=== PATIENT | female | born 1950 | race Caucasian/White ===

== ENCOUNTER 2019-11-21 10:52 | Day surgery (SDC) | payer MEDICARE ==
[~2019-11-21] VITALS: Ht 165.1 cm; Wt 109.8 kg
[~2019-11-21 10:52] MED LIST: ADVIL ALLERGY1 EACH PO; ALL DAY ALLERGY10 M3 PO; CALCIUM/MAG/ZINC; CYCLOBENZAPRINE5 MG PO; LEVOXYL150 MCG PO; NAPROXEN SODIU220 MG PO; OMEPRAZOLE20 MG PO; RED YEAST RICE600 M1 PO
[2019-11-21] MEDS ORDERED: CALCIUM MAGNES1 EAC2 PO (11:26)
--- NOTE | 2019-11-21 13:10 | NUR ---
11/21/19 1310 [facility],[place] 1302-PT ARRIVES TO PACU ON RA. SATS >90%. PT RESPONSIVE TO VERBAL STIMULUS AND DENIES PAIN/NAUSEA. BEDSIDE GLUCOSE 113. PT BACK TO SLEEP AND SATS DROP TO 89%. 2 L O2 VIA NC STARTED.
--- NOTE | 2019-11-25 13:21 | PATH ---
[facility] [address] [facility] [place], [place] [address] Signed SPECIMEN(S): C COMP FLOW CYTOMETRY, BM EDTA SPECIMEN(S): A BONE MARROW - CORE SPECIMEN(S): B BONE MARROW - ASPIRATION CLINICAL HISTORY: D61.818 (other pancytopenia) DIAGNOSIS SUMMARY: A. Peripheral blood - Pancytopenia. B. Bone marrow, left side, aspirate smear, aspirate cell block, and trephine biopsy: - Normocellular marrow with erythrocytic hyperplasia. - Negative for definitive morphologic features of myelodysplasia. - Negative for lymphoproliferative and plasma cell neoplasm. - Stainable iron store is not detected. - See Diagnostic Comment. DIAGNOSTIC COMMENT: The bone marrow examination is significant for mild erythrocytic hyperplasia. Overtly dysplastic features are not seen in the erythroid, myeloid, or megakaryocytic series to account for the patient's pancytopenia. No marrow infiltrative disorder, including granulomatous inflammation, is seen. While low-grade myelodysplastic syndrome is not excluded despite the absence of convincing morphologic evidence, clinical correlation is necessary to exclude reactive causes including chronic illness, medication effect, and immunologic disorders. Karyotype analysis and MDS panel FISH analysis are being performed and the results will be reported by addendum. TTP:smn:C2NR PERIPHERAL BLOOD: HEMOGRAM (11/21/2019): WBC 2.6 K/uL, RBC 4.51 M/uL, HGB 10.6 g/dL, HCT 32.9%, MCV 73.0 fL, RDW 16.2%, PLT 93 K/uL. DIFFERENTIAL (AUTOMATED): 58.2% neutrophils, 31.2% lymphocytes, 7.4% monocytes, 1.9% eosinophils, and 1.3% basophils. Absolute neutrophil count is 1.5 K/uL. The red cells are normal in number and are associated with mildly decreased hemoglobin and hematocrit levels. The red cells are slightly hypochromic and microcytic. Anisocytosis and poikilocytosis are increased with some scattered polychromatophilic macrocytes. No PATIENT NAME: RADHA CASTILLO PATHOLOGY DATE OF : 54 REPORT #: [id number] PHYSICIAN: STUART PATHOLOGY PCP: JARON GUNN MD REPORT IS CONFIDENTIAL AND NOT TO BE RELEASED WITHOUT AUTHORIZATION [facility] [address] [place], [place] [address] Signed significant number of spherocytes or schistocytes is seen. Red blood cell rouleaux are absent. Leukocytes are decreased in number and consistent of mature neutrophils with normal morphology. There is mild absolute neutropenia. Overtly dysplastic changes are not seen. Circulating blasts and immature granulocytes are not detected. There is no monocytosis, basophilia, or eosinophilia. Lymphocytes show normal morphology. No significant number of large granular lymphocytes is seen. Platelets are mildly decreased in number and show normal morphology. BONE MARROW: BONE MARROW ASPIRATE SMEARS: The bone marrow aspirate smears contain abundant cellular marrow particles. Erythroid precursors are increased. Both myeloid and erythroid precursors show complete and material flow analyst maturation without overtly dysplastic change. Blasts are not increased. An atypical lymphoid cell population is not detected. A few scattered plasma cells are present and they show normal morphology. Megakaryocytes are normal in number and show normal morphology. A 200-cell differential count yields: 6% myelocytes, 15% metamyelocytes, 17% neutrophils, 8% lymphocytes, 2% plasma cells, and 52% erythroid precursors. BONE MARROW CLOT (ASPIRATE CELL BLOCK) AND TREPHINE BIOPSY: A 2.1 cm decalcified trephine biopsy is available for review, showing a normocellular marrow for age (60% cellular). Granulopoietic and erythroid maturations are present with an M:E ratio of 1:2. No increase in immature cells is noted. A single lymphoid aggregate with a small germinal center is present, morphologically benign. No increase in plasma cells is appreciated. Megakaryocytes are normal in number and show normal morphology with even distribution. Trabecular bone is normal. The clot section contains several cellular marrow particles with similar findings. SPECIAL STAINS: - Iron (aspirate smears and clot section): Stainable iron store is not detected. Negative for ringed sideroblasts. - Reticulin (block A1): Mild patchy reticulin fibrosis, grade 0-1 of 3. Appropriate positive controls are reviewed. IMMUNOHISTOCHEMISTRY, BLOCK A1: - CD34: Rare scattered cells are positive (less than 1% blasts). - CD117: No increase in blasts. - CD71: Erythroid precursors are positive, increased. PATIENT NAME: RADHA CASTILLO PATHOLOGY DATE OF : 54 REPORT #: [id number] PHYSICIAN: STUART PATHOLOGY PCP: JARON GUNN MD REPORT IS CONFIDENTIAL AND NOT TO BE RELEASED WITHOUT AUTHORIZATION [facility] [address] [facility] [place], [place] [address] Signed - Myeloperoxidase: Granulocytic precursors are positive, normal amount. - Factor VIII: Megakaryocytes are positive, normal amount, with even distribution. TTP:smn FLOW CYTOMETRY: Bone marrow aspirate, flow cytometry: - No increase in blasts (1% myeloblasts). - Normal myeloid maturation. - No atypical lymphoid cell population. - See Comment. COMMENT: While no hematopoietic abnormality is detected in this study, correlation with clinical, morphologic, and genetic findings is recommended for full interpretation and to assess for disease processes not fully examined by flow cytometry analysis, including myelodysplastic syndrome. FLOW CYTOMETRY ANALYSIS: FLOW DIFFERENTIAL (% Total CD45 vs. SSC gating): Myeloid 68%; Lymphoid 10%; Monocyte 2%; Dim CD45/Blast: 1%. Cell Count: 3.2 x 10*3/uL. POPULATION ANALYSIS: BLASTS: Analysis of the dim CD45 gate demonstrates 1% myeloblasts and 6% hematogones. LYMPHOID CELLS: The lymphocyte gate comprises 10% of total events and includes 71% T-cells with a CD4:CD8 ratio of 2.3:1 and normal camacho T-cell antigen expression. 21% of lymphocytes are polyclonal B-cells with a kappa:lambda ratio of 2.0:1. The remainders are NK-cells. MYELOID CELLS: The myeloid population comprises 68% of the total events. No aberrant immunophenotypic expression is detected. MONOCYTES: The monocyte population comprises 2% of the total events. Monocytes are not increased. No aberrant immunophenotypic expression is detected. PLASMA CELLS: 0.6% plasma cells are detected in the screening gate neg-dimCD45/CD38. Plasma cells are CD45 dim and positive for CD19. ANTIBODIES USED: KAPPA, LAMBDA, CD20, CD10, CD19, CD23, CD38, FMC7, CD16, CD56, CD8, CD5, CD2, CD4, CD7, CD3, CD14, CD33, CD13, HLADR, CD34, CD117, CD15, CD45: TOTAL ANTIBODIES USED: 24. TCS FINAL DIAGNOSIS PERFORMED BY: Sonia Herrera MD, Pathologist Nov 24 2019 11:12AM PATIENT NAME: RADHA CASTILLO PATHOLOGY DATE OF : 54 REPORT #: [id number] PHYSICIAN: STUART PATHOLOGY PCP: JARON GUNN MD REPORT IS CONFIDENTIAL AND NOT TO BE RELEASED WITHOUT AUTHORIZATION [facility] [address] [place], [place] [address] Signed CYTOGENETICS: Pending, to be reported by addendum. FISH ANALYSIS: Pending, to be reported by addendum. GROSS DESCRIPTION: Received in formalin in two parts. A. The specimen, received in formalin, labeled "Eusebio, bone core," consists of two cosme bone core fragments, 0.9 and 1.8 cm in greatest dimension. Entirely submitted in (A1) following decalcification in Immunocal for 1.5 hours. B. The specimen, received in formalin, labeled "Eusebio, clot," consists of a 1.9 x 1.1 x 0.8 cm aggregate of blood clot. Entirely submitted in (B1). tn:ALONSO:erica ADDITIONAL NOTES: Immunohistochemical and/or in situ hybridization studies were performed on this case with the appropriate positive controls that react as expected. This test was developed and its performance characteristics determined by [facility]. It has not been cleared or approved by the U.S. Food and Drug Administration. The FDA has determined that such clearance or approval is not necessary. This test is used for clinical purposes. It should not be regarded as investigational or for research. [facility] is certified under the Clinical Laboratory Improvement Amendments of 1988 (CLIA) as qualified to perform high complexity clinical laboratory testing. In this case, certain antibodies were performed by both immunohistochemistry and flow cytometry analysis because flow cytometry analysis did not fully explain all the light microscopic findings. Immunohistochemistry aided in the analysis. Both methods are deemed medically necessary in this case. This test was developed and its performance characteristics determined by [facility]. It has not been cleared or approved by the US Food and Drug Administration. The FDA does not require this test to go through premarket FDA review. This test is used for clinical purposes. It should not be regarded as investigational or for research. This laboratory is certified under the Clinical Laboratory Improvement Amendments (CLIA) as qualified to perform high PATIENT NAME: RADHA CASTILLO PATHOLOGY DATE OF : 54 REPORT #: [id number] PHYSICIAN: STUART PATHOLOGY PCP: JARON GUNN MD REPORT IS CONFIDENTIAL AND NOT TO BE RELEASED WITHOUT AUTHORIZATION [address] [address] Signed complexity clinical laboratory testing. PERFORMING LABORATORY: The professional interpretation was performed by [facility], [address] [place] [address] (Product Support Technician: Dawit Osullivan D.O.; CLIA#: [id number]). Professional interpretation was performed by [facility], [address] [place] [address] (Product Support Technician: Dawit Osullivan D.O.; CLIA#: [id number]). IMAGES: A: [id number]: [id number] Diagnostician: Sonia Herrera MD Pathologist Electronically Signed 11/25/2019 Copies: ~ PATIENT NAME: RADHA CASTILLO PATHOLOGY DATE OF : 54 REPORT #: [id number] PHYSICIAN: STUART MONTANEZ PCP: JARON GUNN MD REPORT IS CONFIDENTIAL AND NOT TO BE RELEASED WITHOUT AUTHORIZATION
== END 2019-11-21 13:55 | disposition home or self-care (01) ==
LOC: OPS 10:52 → DS 10:52 → OPS 12:00
PROVIDERS: Specialist
PROC: 079T3ZX Drainage of Bone Marrow, Percutaneous Approach, Diagnostic (ICD-10-PCS; 2019-11-21)
PROC: 07DR3ZX Extraction of Iliac Bone Marrow, Percutaneous Approach, Diagnostic (ICD-10-PCS; principal; 2019-11-21 12:00)
DX: D61.818 Other pancytopenia (principal); E03.9 Hypothyroidism, unspecified; F17.210 Nicotine dependence, cigarettes, uncomplicated; E11.9 Type 2 diabetes mellitus without complications; I10 Essential (primary) hypertension; Z91.013 Allergy to seafood
CPT/HCPCS: 80053; 82728; 83540; 83615; 84155; 84165; 84466; 85025; 85651; 99152; 99153; J2250; J3010; J7121

== ENCOUNTER 2020-01-13 07:26 | Day surgery (SDC) | payer MEDICARE ==
[~2020-01-13] VITALS: Ht 165.1 cm; Wt 109.8 kg
[~2020-01-13 07:26] MED LIST changes: +CALCIUM MAGNES1 EAC2 PO
--- NOTE | 2020-01-13 11:04 | NUR ---
01/13/20 1104 [facility],[place] 1051 PT ARRIVED AWAKE AND TALKING TO RN, PT MOVING HERSELF UP IN BED. VSS. PT ON 3L VIA NC. PT DENIES NAUSEA AND PAIN. 1059 O2 REMOVED, HOB INCREASED AND PLAN OF CARE DISCUSSED.
--- NOTE | 2020-01-14 09:34 | OR ---
[facility] [address] [place], [place] [address] Signed DATE OF OPERATION: 01/13/2020 SURGEON: Shravan Tierney MD PREOPERATIVE DIAGNOSES: 1. Anemia, unknown etiology. 2. Possible liver disease, consideration for portal hypertension. POSTOPERATIVE DIAGNOSES: 1. Mild proximal gastritis without sign of hiatal hernia, normal esophagus, no varices. 2. Multiple small polyps of colon, none of which were likely causes of anemia. PROCEDURE: 1. Esophagogastroduodenoscopy with biopsy. 2. Total colonoscopy to cecum with cold morcellation polypectomy x6 and cold snare polypectomy x3. ANESTHESIA: Intravenous sedation, fentanyl 150 mcg, Versed 6 mg. INDICATIONS: This 69-year-old white woman is a patient Dr. Tesfaye and recently also Dr. Peña. She is considered to have anemia, which is iron deficiency oriented. She has typical gastroesophageal reflux symptoms for which she takes omeprazole, she has no dysphagia. She has no blood per rectum or hematemesis, though she does have vague abdominal pain. She has underlying COPD and is known to have diabetes and hypothyroidism. There is some consideration she may have liver disease and consideration for possible portal hypertension. She is noted to have a slightly low platelet count of 93,000. Recent blood test showed a white count of only 2.6 with hematocrit of 32.9, platelets 93,000. Electrolytes were normal. Iron binding capacity was 473 (elevated iron level 40.51), low normal. Ferritin was 12.02, considered low. She is admitted to undergo upper endoscopy and colonoscopy to better characterize the source for anemia. She understands the risks of bleeding, infection, perforation findings. Upper endoscopy showed mild proximal gastritis. Esophagus was normal. There was a normal flap valve. The antrum was normal. CLOtest was negative 20 minutes post procedure. Colonoscopy showed a very well prepped bowel. Complete colonoscopy was undertaken of the cecum. There were few scattered diverticuli. She had multiple small polyps, none of them appeared malignant or bleeding in any way. They were excised completely. Electronically Signed By: SHRAVAN TIERNEY MD 01/14/20 0934 PATIENT NAME: RADHA CASTILLO OPERATIVE REPORT DATE OF : 54 REPORT #: [id number] PHYSICIAN: SHRAVAN TIERNEY MD PCP: JARON TESFAYE MD REPORT IS CONFIDENTIAL AND NOT TO BE RELEASED WITHOUT AUTHORIZATION [facility] [address] [place], [place] [address] Signed DESCRIPTION OF PROCEDURE: The patient was brought to the endoscopy suite given topical lidocaine spray hypopharyngeal anesthesia and placed in lateral decubitus position. A bite block was placed after administration of intravenous fentanyl and Versed for good sedation. An Olympus video upper endoscope was passed in the hypopharynx. The vocal cords appeared normal. Scope was advanced into the esophagus without problem throughout its length, it looked normal. There was no Wilkes's epithelium stricture, neoplasm or varices at all. The scope was advanced to the stomach, which was insufflated with air. Rugal folds were normal. Antrum was reasonably normal as was the pylorus. The scope was passed through into the duodenal, which was normal. Biopsies were obtained there to assess for celiac disease. The scope was withdrawn and retroflexed view undertaken showing a relatively good flap valve. There was mild proximal gastritis without ulceration. There were no polyps. Biopsies were taken of the stomach for ABRAM and pathologic testing. Biopsies were additionally taken of the antrum. The scope was withdrawn to the distal esophagus and although it appeared normal, biopsy was obtained given her prior history of "reflux." Careful withdrawal of scope showed no other findings of the esophagus. Plans were then made for colonoscopy. Additional sedation was given. Digital rectal examination performed, which was normal. An Olympus video colonoscope was passed in the rectum and manipulated throughout the colon. Polyp was noted in the left colon, which was adenomatous in appearance. This was excised with cold morcellation technique. It found to be the proximal descending colon. The scope was ultimately advanced to the cecum. True intubation of the cecum was not forthcoming, the ileocecal valve was visualized and on that basis, a biopsy forcep was used to elevate the mucosa behind the ileocecal valve showing no sign of abnormality. Scope was withdrawn showing no sign of abnormality. Careful withdrawal of scope, ultimately withdrew the scope to the proximal descending colon where previous excision was noted. Careful withdrawal of scope showed some diverticula of the sigmoid and left colon. There was small probably hyperplastic appearing polyps at 33, 30 and 20 cm, all excised with cold morcellation technique. Further withdrawal to the 15 cm level showed 5 or more small polyps, all excised with combination of cold morcellation and cold snare technique. Retroflexed view of the rectum was normal. Scope was removed and the patient was taken to the recovery room in good condition. CONCLUDING DIAGNOSIS: No lesion on upper and lower endoscopy to account for anemia and certainly not any sign of portal hypertension on endoscopy otherwise. PLAN: She will return to the ongoing care of Dr. Tesfaye and Dr. Peña. I would recommend repeat colonoscopy in one year based on the number of polyps, sooner if she should have bleeding or other problems. Electronically Signed By: SHRAVAN TIERNEY MD 01/14/20 0934 PATIENT NAME: ANNARADHA COTTON OPERATIVE REPORT DATE OF : 54 REPORT #: [id number] PHYSICIAN: SHRAVAN TIERNEY MD PCP: JARON TESFAYE MD REPORT IS CONFIDENTIAL AND NOT TO BE RELEASED WITHOUT AUTHORIZATION [address] [place], [place] [address] Signed MD AWILDA Almazan/POOJA /[id number] cc: MD Ajay Sterling MD Copies: AJAY PEÑA MD ~ Electronically Signed By: SHRAVAN TIERNEY MD 01/14/20 0934 PATIENT NAME: RADHA CASTILLO OPERATIVE REPORT DATE OF : 54 REPORT #: [id number] PHYSICIAN: SHRAVAN TIERNEY MD PCP: JARON TESFAYE MD REPORT IS CONFIDENTIAL AND NOT TO BE RELEASED WITHOUT AUTHORIZATION
--- NOTE | 2020-01-16 14:18 | PATH ---
[facility] [address] [place], [place] [address] Signed SPECIMEN(S): A DUODENUM SPECIMEN(S): B PROXIMAL STOMACH SPECIMEN(S): C ANTRUM SPECIMEN(S): D DISTAL LOWER ESOPHAGUS SPECIMEN(S): E LEFT COLON POLYP SPECIMEN(S): F COLON POLYP AT 30 CM SPECIMEN(S): G COLON POLYP AT 33 CM SPECIMEN(S): H COLON POLYP AT 20 CM SPECIMEN(S): I COLON AT 15 CM SPECIMEN SOURCE: A. DUODENUM B. PROXIMAL STOMACH C. ANTRUM D. DISTAL LOWER ESOPHAGUS E. LEFT COLON POLYP F. COLON POLYP AT 30 CM G. COLON POLYP AT 33 CM H. COLON POLYP AT 20 CM I. COLON AT 15 CM CLINICAL HISTORY: Anemia, mild gastritis, diverticulosis, multiple colon polyps. MICROSCOPIC DESCRIPTION: Histologic sections of all submitted blocks are examined by light microscopy. These findings, together with the gross examination, support the pathologic diagnosis. FINAL PATHOLOGIC DIAGNOSIS: A. Duodenum, biopsy: - Duodenal mucosa with no histopathologic abnormality. - Negative for dysplasia or malignancy. B. Stomach, proximal, biopsy: - Oxyntic mucosa with mild chronic, inactive gastritis. - Negative for Helicobacter organisms on HE stain. - Negative for dysplasia or malignancy. C. Stomach, antrum, biopsy: - Antral mucosa with chronic, inactive gastritis. - Negative for Helicobacter organisms, see Comment. - Negative for dysplasia or malignancy. D. Esophagus, distal lower, biopsy: PATIENT NAME: CARMELA CASTILLONA LULA PATHOLOGY DATE OF : 54 REPORT #: [id number] PHYSICIAN: STUART PATHOLOGY PCP: JARON GUNN MD REPORT IS CONFIDENTIAL AND NOT TO BE RELEASED WITHOUT AUTHORIZATION [facility] [address] [place], [place] [address] Signed - Squamous mucosa with chronic inflammation and reactive changes, consistent with reflux esophagitis. - Free floating fragment of foveolar type glands. - Negative for intestinal metaplasia, dysplasia, or malignancy. E. Colon, left, polyp, polypectomy: - Fragments of tubular adenoma. - Negative for high-grade dysplasia or malignancy. F. Colon, distal, polyp at 30 cm, polypectomy: - Colonic mucosa with mild hyperplastic changes. - Negative for dysplasia or malignancy. G. Colon, distal, polyp at 33 cm, polypectomy: - Colonic mucosa with mild hyperplastic changes. - Negative for dysplasia or malignancy. H. Colon, distal, polyp at 20 cm, polypectomy: - Fragments of hyperplastic polyp. - Negative for dysplasia or malignancy. I. Colon, polyps at 15 cm, polypectomy: - Hyperplastic polyp (1 fragment). - Fragments of colonic mucosa with mild hyperplastic changes. - Negative for dysplasia or malignancy. COMMENT: An immunohistochemical stain (with appropriately staining controls) for H. pylori performed on the antral biopsy (C) is negative for Helicobacter organisms. NAL:cml:C2NR GROSS DESCRIPTION: Ten specimens are received in ten containers, labeled "DP." A. The specimen, labeled "DP, 1," and designated on the requisition "duodenum," is received in formalin and consists of one cosme soft tissue fragment that measures 0.3 cm in greatest dimension. The specimen is entirely submitted in cassette (A1). B. The specimen, labeled "DP, 2, proximal stomach," is received in formalin and consists of two cosme soft tissue fragments that measure 0.4 cm in greatest dimension. The specimen is entirely submitted in cassette (B1). C. The specimen, labeled "DP, 3," and designated on the requisition "antrum," is received in formalin and consists of two cosme soft tissue fragments that measure 0.4 cm in greatest dimension. The specimen is entirely submitted in cassette (C1). PATIENT NAME: RADHA CASTILLO PATHOLOGY DATE OF : 54 REPORT #: [id number] PHYSICIAN: STUART MONTANEZ PCP: JARON GUNN MD REPORT IS CONFIDENTIAL AND NOT TO BE RELEASED WITHOUT AUTHORIZATION [facility] [address] [place], [place] [address] Signed D. The specimen, labeled "DP, 4," and designated on the requisition "distal lower esophagus," is received in formalin and consists of two cosme soft tissue fragments that measure 0.3 cm in greatest dimension. The specimen is entirely submitted in cassette (D1). E. The specimen, labeled "DP, 5," and designated on the requisition "left colon," is received in formalin and consists of two cosme soft tissue polypoid fragments that measure 0.3 cm in greatest dimension. The specimen is entirely submitted in cassette (E1). F. The specimen, labeled "DP, 7," and designated on the requisition "colon at 30 cm," is received in formalin and consists of three cosme soft tissue fragments that measure 0.3 cm in greatest dimension. The specimen is entirely submitted in cassette (F1). G. The specimen, labeled "DP, 8," and designated on the requisition "colon at 33 cm," is received in formalin and consists of two cosme soft tissue fragments that measure 0.3 cm in greatest dimension. The specimen is entirely submitted in cassette (G1). H. The specimen, labeled "DP, 9," and designated on the requisition "colon at 20 cm," is received in formalin and consists of two cosme-brown soft tissue polypoid fragments that measure 0.4 cm in greatest dimension. The specimen is entirely submitted in cassette (H1). I. The specimen, labeled "DP, 10, polyps at 15 cm," and designated on the requisition "colon at 15 cm," is received in formalin and consists of multiple cosme soft tissue fragments that measure 1.0 x 0.7 x 0.3 cm in aggregate. The specimen is entirely submitted in cassette (I1). AT (under the direct supervision of a pathologist) The Gross Description was prepared using a voice recognition system. The report was reviewed for accuracy; however, sound-alike word errors, addition and/or deletions may occur. If there is any question about this report, please contact Client Services. ADDITIONAL NOTES: Immunohistochemical and/or in situ hybridization studies were performed on this case with the appropriate positive controls that react as expected. This test was developed and its performance characteristics determined by [facility]. It has not been cleared or approved by the U.S. Food and Drug Administration. The FDA has determined that such clearance or approval is not necessary. This test is used for clinical purposes. It should not be regarded as investigational or for research. [facility] is certified under the PATIENT NAME: RADHA CASTILLO PATHOLOGY DATE OF : 54 REPORT #: [id number] PHYSICIAN: [facility] PCP: JARON GUNN MD REPORT IS CONFIDENTIAL AND NOT TO BE RELEASED WITHOUT AUTHORIZATION [facility] [address] [place], [place] [address] Signed Clinical Laboratory Improvement Amendments of 1988 (CLIA) as qualified to perform high complexity clinical laboratory testing. PERFORMING LABORATORY: The technical component was performed by [facility] [address] (Manager Heavy Duty: Jayne Yang MD; CLIA# [id number]). [facility], [address] [address] (CLIA# [id number]). Diagnostician: Marlyn Mcclure MD Pathologist Electronically Signed 01/16/2020 Copies: ~ PATIENT NAME: RADHA CASTILLO PATHOLOGY DATE OF : 54 REPORT #: [id number] PHYSICIAN: STUART PATHOLOGY PCP: JARON GUNN MD REPORT IS CONFIDENTIAL AND NOT TO BE RELEASED WITHOUT AUTHORIZATION
== END 2020-01-13 11:40 | disposition home or self-care (01) ==
LOC: OPS 07:26 → DS 07:27 → OPS 09:30
PROVIDERS: Surgery
PROC: 0DB38ZX Excision of Lower Esophagus, Via Natural or Artificial Opening Endoscopic, Diagnostic (ICD-10-PCS; 2020-01-13)
PROC: 0DBG8ZZ Excision of Left Large Intestine, Via Natural or Artificial Opening Endoscopic (ICD-10-PCS; 2020-01-13)
PROC: 0DBE8ZZ Excision of Large Intestine, Via Natural or Artificial Opening Endoscopic (ICD-10-PCS; 2020-01-13)
PROC: 0DBG8ZZ Excision of Left Large Intestine, Via Natural or Artificial Opening Endoscopic (ICD-10-PCS; 2020-01-13)
PROC: 0DB98ZX Excision of Duodenum, Via Natural or Artificial Opening Endoscopic, Diagnostic (ICD-10-PCS; principal; 2020-01-13 09:30)
PROC: 0DB78ZX Excision of Stomach, Pylorus, Via Natural or Artificial Opening Endoscopic, Diagnostic (ICD-10-PCS; 2020-01-13 09:30)
DX: D12.4 Benign neoplasm of descending colon (principal); K29.50 Unspecified chronic gastritis without bleeding; K20.9 Esophagitis, unspecified; K21.9 Gastro-esophageal reflux disease without esophagitis; D50.9 Iron deficiency anemia, unspecified; F32.9 Major depressive disorder, single episode, unspecified; E11.9 Type 2 diabetes mellitus without complications; F17.200 Nicotine dependence, unspecified, uncomplicated; Z91.09 Other allergy status, other than to drugs and biological substances; Z91.013 Allergy to seafood; Z79.899 Other long term (current) drug therapy
CPT/HCPCS: 88305; 88342; 99153; G0500; J2250; J3010; J7121

== ENCOUNTER 2024-05-09 14:29 | Observation (INO) | payer MEDICARE ==
[~2024-05-09] VITALS: Ht 167.6 cm; Wt 106.1 kg
[~2024-05-09 14:29] MED LIST changes: +ALBUTEROL2.5 MG/3 M INH; +BENZONATATE100 MG PO; +EUTHYROX150 MCG PO; +FAMOTIDINE40 MG PO; +LEVOTHYROXINE150 MC1 PO; +METFORMIN HCL500 M2 PO; +NICOTINE LOZENGE4 MG BUCCAL; +OSELTAMIVIR PHO30 MG PO; +PRAVASTATIN SOD40 MG PO; +PREDNISONE20 MG PO; +PROVENTIL HFA6.7 GM INH
[2024-05-09] MEDS ORDERED: AMITRIPTYLINE H10 MG PO (17:58)
[2024-05-09 18:47] LABS: MCH 20.2 (27-36)
[2024-05-09 18:49] LABS: BASOPHILS 1.4 % (0-2); EOSINOPHILS 1.3 % (0-6); HEMATOCRIT 16.4 % (35.0-50.0); LYMPHOCYTES 21.9 % (24-44); MCHC 29.2 g/dl (30-36); MCV 69.3 fl (81-99); MONOCYTES 7.2 % (0-12); NEUTROPHILS 68.2 % (39-80); RBC 2.37 M/ul (4.3-5.7); RDW 21.6 (10.5-15.0)
[2024-05-09 19:05] LABS: ALBUMIN 2.7 g/dL (3.4-5.0); ALBUMIN/GLOBULIN RATIO 0.63 (1.1-2.4); ANION GAP 10.3 (7-21); BILIRUBIN, TOTAL 1.6 ng/dL (0.2-1.0); BUN/CREATININE RATIO 7.01 (6.0-28.6); CALCIUM 9.5 mg/dL (8.5-10.1); CREATININE, SERUM 1.14 mg/dL (0.55-1.02); MAGNESIUM 1.6 mg/dL (1.8-2.4); POTASSIUM 3.3 mmol/L (3.5-5.1)
[2024-05-09 19:14] LABS: HEMOGLOBIN 4.8 g/dL (12.0-18.0)
[2024-05-09 19:15] LABS: PLATELET COUNT 11 K/uL (140-440)
[2024-05-09 19:16] LABS: SMEAR REVIEW BLOOD SEE COMMENTS
[2024-05-09] MEDS ORDERED: MAGNESIUM OXIDE 400 MG TABLET PO ONE (19:45)
[2024-05-09 20:16] LABS: ABO B; ANTIBODY SCREEN NEGATIVE; IS CROSSMATCH COMPATIBLE; RH POSITIVE
[2024-05-09 20:17] LABS: ABO B; RH POSITIVE
[2024-05-09] MEDS ORDERED: AMITRIPTYLINE HCL 10 MG TAB PO SCH (21:05)
[2024-05-09] MEDS ORDERED: NICOTINE POLACRILEX 2 MG GUM MM PRN (21:15)
[2024-05-09] MEDS ORDERED: ALBUTEROL SULFATE 8 GM INH INH PRN (21:15)
[2024-05-09] MEDS ORDERED: INHALER, ASSIST DEVICES 1 EACH SPACER MISC ONE (21:15)
[2024-05-09] MEDS ORDERED: BENZONATATE 100 MG CAP PO PRN (21:15)
[2024-05-09] MEDS ORDERED: MAGNESIUM SULFATE 2 GM/50 ML BAG IV ONE (21:15)
[2024-05-09] MEDS ORDERED: POTASSIUM CHLORIDE 10 MEQ TABCR PO ONE (21:30)
[2024-05-09 21:35] VITALS: BP 122/48
[2024-05-09 22:00] VITALS: BP 117/58
[2024-05-09] MEDS ORDERED: CYCLOBENZAPRINE HCL 10 MG TAB PO PRN (22:00)
[2024-05-09] MEDS ORDERED: CYCLOBENZAPRINE5 MG PO (22:25)
[2024-05-09 23:00] VITALS: BP 132/41
[2024-05-10] VITALS: BP 135/55
[2024-05-10 01:00] VITALS: BP 135/49
[2024-05-10 05:16] LABS: BASOPHILS 1.2 % (0-2); EOSINOPHILS 2.8 % (0-6); HEMOGLOBIN 6.9 g/dL (12.0-18.0); LYMPHOCYTES 25.3 % (24-44); MCH 23.5 (27-36); MCHC 31.3 g/dl (30-36); MONOCYTES 9.4 % (0-12); NEUTROPHILS 61.3 % (39-80); RBC 2.94 M/ul (4.3-5.7); RDW 24.4 (10.5-15.0)
[2024-05-10 05:30] VITALS: BP 143/57
[2024-05-10 05:33] LABS: ALBUMIN 2.5 g/dL (3.4-5.0); ALBUMIN/GLOBULIN RATIO 0.63 (1.1-2.4); ANION GAP 9.5 (7-21); BILIRUBIN, TOTAL 2.7 ng/dL (0.2-1.0); BUN/CREATININE RATIO 9.52 (6.0-28.6); CALCIUM 8.8 mg/dL (8.5-10.1); CREATININE, SERUM 1.05 mg/dL (0.55-1.02); POTASSIUM 3.5 mmol/L (3.5-5.1); PROTEIN, TOTAL 6.5 g/dL (6.4-8.2)
[2024-05-10 05:41] LABS: PLATELET COUNT 12 K/uL (140-440)
[2024-05-10] MEDS ORDERED: LEVOTHYROXINE SODIUM 150 MCG TAB PO SCH (06:00)
[2024-05-10] MEDS ORDERED: FAMOTIDINE 20 MG TAB PO SCH (07:00)
[2024-05-10] MEDS ORDERED: ALBUTEROL SULFATE 0.083% 3 ML VIAL INH PRN (07:30)
[2024-05-10 07:54] VITALS: BP 120/52
[2024-05-10 07:57] LABS: IS CROSSMATCH COMPATIBLE
[2024-05-10] MEDS ORDERED: DOCUSATE SODIUM 100 MG/10 ML UDC OTIC ONE (08:15)
[2024-05-10] MEDS ORDERED: CETIRIZINE HCL 10 MG TAB PO SCH (09:00)
[2024-05-10] MEDS ORDERED: PHARMACY RENAL DOSE ADJUSTMENT 1 DOSE MISC PO SCH (12:00)
--- NOTE | 2024-05-11 11:12 | EKG ---
[facility] [address] [facility] [place], [place] [address] Signed Sinus rhythm with premature atrial complexes ST \T\ T wave abnormality, consider inferior ischemia Abnormal ECG No previous ECGs available Confirmed by Jd Hahn MD ([id number]) on 05/11/2024 11:12:16 AM Electronically Signed By: JD HAHN MD 05/11/241111 PATIENT NAME: RADHA CASTILLO Electrocardiogram DATE OF : 54 PHYSICIAN: JD HAHN MD REPORT #: [id number] REPORT IS CONFIDENTIAL AND NOT TO BE RELEASED WITHOUT AUTHORIZATION
== END 2024-05-10 11:51 | disposition home or self-care (01) ==
LOC: ED 14:29 → CCU 14:30 → ED 14:30 → CCU 05-10 11:51
PROVIDERS: Emergency Medicine; Internal Medicine; ADMIT Student in an Organized Health Care Education/Training Program; ATTEND Student in an Organized Health Care Education/Training Program
DX: D61.818 Other pancytopenia (principal); K75.4 Autoimmune hepatitis; E80.6 Other disorders of bilirubin metabolism; E11.9 Type 2 diabetes mellitus without complications; E03.9 Hypothyroidism, unspecified; K72.10 Chronic hepatic failure without coma; K21.9 Gastro-esophageal reflux disease without esophagitis; F39 Unspecified mood [affective] disorder; F17.200 Nicotine dependence, unspecified, uncomplicated; Z79.890 Hormone replacement therapy; Z79.01 Long term (current) use of anticoagulants; Z79.899 Other long term (current) drug therapy; Z88.8 Allergy status to other drugs, medicaments and biological substances; Z86.718 Personal history of other venous thrombosis and embolism; Z91.013 Allergy to seafood; Z66 Do not resuscitate
CPT/HCPCS: 36415; 36430; 70450; 80053; 83735; 84484; 85025; 85060; 86850; 86900; 86901; 86922; 93005; 93010; 96365; 99285-25; A9270; G0378; J3475; P9016

== ENCOUNTER 2024-08-14 09:32 | Emergency (ER) | payer MEDICARE ==
[~2024-08-14] VITALS: Ht 167.6 cm; Wt 117.0 kg
[~2024-08-14 09:32] MED LIST changes: +AMITRIPTYLINE H10 MG PO
[2024-08-14] MEDS ORDERED: dilTIAZem HCL 25 MG/5 ML VIAL IV ONE (09:45)
[2024-08-14] MEDS ORDERED: DILTIAZEM HCl/D5W 125 ML IV SCH (09:45)
[2024-08-14] MEDS ORDERED: VENTOLIN HFA18 GM INH (09:54)
[2024-08-14 09:55] LABS: BASOPHILS 0.5 % (0-2); EOSINOPHILS 1.4 % (0-6); HEMOGLOBIN 8.3 g/dL (12.0-18.0); LYMPHOCYTES 9.7 % (24-44); MCHC 29.7 g/dl (30-36); MCV 64.1 fl (81-99); MONOCYTES 9.2 % (0-12); NEUTROPHILS 79.2 % (39-80); RBC 4.37 M/ul (4.3-5.7)
[2024-08-14] MEDS ORDERED: OMEPRAZOLE40 MG PO (09:55)
[2024-08-14] MEDS ORDERED: TYLENOL EXTRA500 MG PO (09:56)
[2024-08-14 10:09] LABS: ALBUMIN 2.8 g/dL (3.4-5.0); ALBUMIN/GLOBULIN RATIO 0.54 (1.1-2.4); ANION GAP 15.3 (7-21); BILIRUBIN, TOTAL 2.6 ng/dL (0.2-1.0); BUN/CREATININE RATIO 13.95 (6.0-28.6); CALCIUM 9.5 mg/dL (8.5-10.1); CREATININE, SERUM 1.29 mg/dL (0.55-1.02); MAGNESIUM 1.5 mg/dL (1.8-2.4); POTASSIUM 4.3 mmol/L (3.5-5.1)
[2024-08-14] MEDS ORDERED: MAGNESIUM OXIDE 400 MG TABLET PO ONE (10:15)
[2024-08-14] MEDS ORDERED: MAGNESIUM SULFATE 2 GM/50 ML BAG IV ONE (10:15)
[2024-08-14 10:21] LABS: PLATELET COUNT 43 K/uL (140-440)
[2024-08-14] MEDS ORDERED: dilTIAZem HCL 180 MG CAPCR PO ONE (10:30)
[2024-08-14] MEDS ORDERED: ACETAMINOPHEN 500 MG TAB PO ONE (13:45)
[2024-08-14] MEDS ORDERED: CARDIZEM CD180 MG PO (13:46)
[2024-08-14] MEDS ORDERED: LASIX20 MG PO (14:43)
[2024-08-14] MEDS ORDERED: DILTIAZEM 24HR180 M1 PO (14:44)
[2024-08-14 14:51] VITALS: BP 138/85
--- NOTE | 2024-08-15 12:04 | EKG ---
[facility] [address] [facility] [place] [address] Signed Atrial fibrillation with rapid ventricular response Low voltage QRS Cannot rule out Anterior infarct , age undetermined Abnormal ECG When compared with ECG of 09-MAY-2024 18:58, Atrial fibrillation has replaced Sinus rhythm Nonspecific T wave abnormality has replaced inverted T waves in Lateral leads Confirmed by Jesse Echeverria MD ([id number]) on 08/15/2024 12:04:29 PM Electronically Signed By: JESSE ECHEVERRIA 08/15/24 1204 PATIENT NAME: RADHA CASTILLO Electrocardiogram DATE OF : 54 PHYSICIAN: JESSE ECHEVERRIA REPORT #: [id number] REPORT IS CONFIDENTIAL AND NOT TO BE RELEASED WITHOUT AUTHORIZATION
== END 2024-08-14 14:51 | disposition home or self-care (01) ==
LOC: ED 09:32
PROVIDERS: Emergency Medicine
DX: I48.91 Unspecified atrial fibrillation (principal); E11.9 Type 2 diabetes mellitus without complications; E03.9 Hypothyroidism, unspecified; F17.200 Nicotine dependence, unspecified, uncomplicated; Z91.018 Allergy to other foods; Z91.048 Other nonmedicinal substance allergy status; Z79.899 Other long term (current) drug therapy; Z79.890 Hormone replacement therapy
CPT/HCPCS: 36415; 71045; 80053; 83735; 83880; 84484; 85025; 85060; 93005; 93010; 96365; 96366; 96368; 96376; 99284-25; A9270; J3475

== ENCOUNTER 2024-09-14 13:45 | Observation (INO) | payer MEDICARE ==
[~2024-09-14] VITALS: Ht 167.6 cm; Wt 106.4 kg
[~2024-09-14 13:45] MED LIST changes: +CARDIZEM CD180 MG PO; +DILTIAZEM 24HR180 M1 PO; +LASIX20 MG PO; +OMEPRAZOLE40 MG PO; +TYLENOL EXTRA500 MG PO; +VENTOLIN HFA18 GM INH
[2024-09-14] MEDS ORDERED: HYDROCODON-ACE1 EA10 PO (14:07)
[2024-09-14] MEDS ORDERED: METOPROLOL SUCC25 MG PO (14:08)
[2024-09-14] MEDS ORDERED: FUROSEMIDE20 MG PO (14:08)
[2024-09-14] MEDS ORDERED: IPRAT-ALBUT 0.5-3 ML INH (14:10)
[2024-09-14] MEDS ORDERED: SODIUM CHLORIDE 0.9% 500 ML IV ONE (15:00)
[2024-09-14 15:12] LABS: BILIRUBIN, URINE NEGATIVE (negative); BLOOD/HGB, URINE NEGATIVE (Negative); KETONE, URINE TRACE (Negative); LEUK ESTERASE, URINE NEGATIVE (negative); NITRITE, URINE NEGATIVE (negative)
[2024-09-14 15:24] LABS: HEMOGLOBIN 9.7 g/dL (12.0-18.0); MONOCYTES 12.1 % (0-12)
[2024-09-14 15:32] LABS: BASOPHILS 0.4 % (0-2); EOSINOPHILS 1.5 % (0-6); HEMATOCRIT 32.1 % (35.0-50.0); LYMPHOCYTES 12.7 % (24-44); MCH 20.7 (27-36); MCHC 30.4 g/dl (30-36); MCV 68.3 fl (81-99); NEUTROPHILS 73.3 % (39-80); RDW 31.7 (10.5-15.0)
[2024-09-14 15:40] LABS: ALBUMIN 2.3 g/dL (3.4-5.0); ALBUMIN/GLOBULIN RATIO 0.45 (1.1-2.4); ANION GAP 11.1 (7-21); BILIRUBIN, TOTAL 4.2 ng/dL (0.2-1.0); BUN/CREATININE RATIO 9.93 (6.0-28.6); CALCIUM 9.5 mg/dL (8.5-10.1); CREATININE, SERUM 1.51 mg/dL (0.55-1.02); POTASSIUM 3.1 mmol/L (3.5-5.1); PROTEIN, TOTAL 7.4 g/dL (6.4-8.2)
[2024-09-14 15:59] LABS: PLATELET COUNT 18 K/uL (140-440)
[2024-09-14] MEDS ORDERED: PROCHLORPERAZINE 25 MG SUPP PR PRN (18:00)
[2024-09-14] MEDS ORDERED: LORazepam 2 MG/ML VIAL IV PRN ×4 (18:00)
[2024-09-14] MEDS ORDERED: HALOPERIDOL LACTATE 5 MG/ML VIAL IV PRN ×2 (18:00)
[2024-09-14] MEDS ORDERED: PROCHLORPERAZINE MALEATE 10 MG TAB PO PRN (18:00)
[2024-09-14] MEDS ORDERED: ATROPINE SULFATE 1% OPTH DROPS SL PRN (18:00)
[2024-09-14] MEDS ORDERED: fentaNYL citrate 100 MCG/2 ML VIAL IV PRN ×3 (18:00)
[2024-09-14] MEDS ORDERED: ACETAMINOPHEN 650 MG SUPP PR PRN (18:00)
[2024-09-14] MEDS ORDERED: ACETAMINOPHEN 325 MG TAB PO PRN (18:00)
[2024-09-14] MEDS ORDERED: ARTIFICIAL TEARS 15 ML BTL OU PRN (18:00)
[2024-09-14] MEDS ORDERED: MORPHINE SULFATE 10 MG/ML VIAL IV PRN (18:00)
[2024-09-14] MEDS ORDERED: LORazepam 0.5 MG TAB PO PRN (18:00)
[2024-09-14] MEDS ORDERED: MORPHINE SULFATE 4 MG/ML VIAL IV PRN ×2 (18:00)
[2024-09-14 18:28] VITALS: BP 108/67
--- NOTE | 2024-09-14 18:30 | NUR ---
PT ARRIVES TO FLOOR VIA STRETCHER BY ED RN, FAMILY NOT PRESENT. - PT DROWSY AND DOES NOT WAKE OR MOVE FOR SLIDER TRANSFER TO BED. 2L 02 PLACED VIA NC TO SUSTAIN SPO2. BREATHING MODERATLY LABORED WITH NECK ACESSSORY MUSCLE USE. PT DOES WAKE WITH TOUCH AND VOICE AND DENIES PAIN. ACCURATLY ANSWERS , DOES NOT SUSTAIN AWAKE TO ANSWER OTHER QUESTIONS INCLUDING PERSON/PLACE.
--- NOTE | 2024-09-14 19:20 | NUR ---
RECEIVED REPORT FROM DAY SHIFT RN. PATIENT IS RESTING IN BED WITH EYES CLOSED, RR 16. NAD NOTED. CALL LIGHT IN REACH.
[2024-09-14 19:46] VITALS: BP 98/60
[2024-09-14 20:02] VITALS: BP 98/60
--- NOTE | 2024-09-14 20:20 | NUR ---
PATIENT REPOSITIONED IN BED. BEHZAD CARE COMPLETED, NEW ATTEND IN PLACE, AND PUREWICK IN PLACE. PATIENT OPENS EYES AND STATED "HI". PATIENT DENIES ANY PAIN AT THIS TIME. PATIENT IS ON 2L VIA NC. ORAL CARE COMPLETED. ASSEMSENT COMPLETED. PATIENT HAS MULTIPLE NOTED BRUISES-SEE ASSESMENT. PATIENTS IV FLUSHED AND SL PER ORDER. NAD NOTED. NO FURTHER NEEDS NOTED. CALL LIGHT IN REACH. BED ALARM ON FOR SAFETY.
--- NOTE | 2024-09-14 22:34 | NUR ---
PATIENT REPOSITIONED IN BED. PATIENT DENIES ANY PAIN. PATIENT REMAINS ON 2L VIA NC. NAD NOTED. NO FURTHER NEEDS NOTED. CALL LIGHT IN REACH.
[2024-09-15] VITALS (10 sets, daily range): BP systolic 104–133; BP diastolic 41–73
--- NOTE | 2024-09-15 00:09 | NUR ---
PATIENT REPOSITIONED IN BED ONTO LEFT SIDE. PATIENT AWOKEN BRIEFLY AND DENIES ANY PAIN. NAD NOTED. WARM BLANKET PROVIDED. CALL LIGHT IN REACH. BED ALARM ON FOR SAFETY.
--- NOTE | 2024-09-15 02:30 | NUR ---
PATIENTS BED ALARM IS SOUNDING. THIS RN INTO ROOM. PATIENT IS NAKED AND ATTEMPTING TO GET OUT OF BED. PATIENT IS ONLY ORIENTED TO SELF. PATIENT ORIENTED TO EVENT, DATE, TIME AND PLB OF CARE. PATIENT REMAINS ONLY ORIENTED TO SELF. PATIENTS VITALS TAKEN AND RECORDED. INTAKE AND OUTPUT RECORDED. PATIENT REPORTS PAIN IS NOTED TO BE GRIMACING AND HOLDING HER BACK. PATIENT REPOSITIONED IN BED. PATIENT GIVEN TPRN PAIN MEDICATION. BEDSIDE SWALLOW EVAL COMPLETED. PATIENT PROVIDED SIPS OF WATER AND ICE CHIPS. PATIENT REMAINS ON 2L VIA NC. NO FURTHER NEEDS NOTED. CALL LIGHT IN REACH. BED ALARM ON FOR SAFETY.
--- NOTE | 2024-09-15 03:23 | NUR ---
PATIENT IS RESTING IN BED WITH EYES CLOSED, RR 15. CALL LIGHT IN REACH. BED ALARM ON FOR SAFETY.
--- NOTE | 2024-09-15 04:23 | NUR ---
PATIENT REPOSITIONED IN BED. PILLOW PLACED UNDER PATIENTS RIGHT HIP. PATIENT DENIES ANY NEEDS. CALL LIGHT IN REACH. ATTEND IS DRY AT THIS TIME. BED ALARM ON FOR SAFETY.
--- NOTE | 2024-09-15 06:33 | NUR ---
PATIENTS VITALS TAKEN AND RECORDED. PATIENTS ATTEDN DRY AT THIS TIME. PATIENT DENIES NEED TO USE BR. PATIENT IS ON 2L VIA NC. PATIENT REPOSITTIONED IN BED WITH PILLOWS UNDER BILAT HIPS. PATIENT ONLY ORIENTED TO SELF. NAD NOTED. NO NEEDS NOTED. CALL LIGHT IN REACH. BED ALARM ON FOR SAFETY.
--- NOTE | 2024-09-15 07:30 | NUR ---
PT RESTING SOUNDLY AT TIME OF SHIFT REPORT BED ALARM IS SET. FRESH H20 TO BEDSIDE. BOARD UPDATED
--- NOTE | 2024-09-15 07:46 | NUR ---
UR CLINICAL REVIEW: 2 MN FOR VERSALUS-MEETS OBS CRITERIA FOR COMFORT CARE MEDICARE OBS 09/14/24 @ 1754 ORDER MATCHES REG NO AUTH REQUIRED PER MEDICARE GUIDELINES CASE MANAGEMENT TO ASSIST WITH PLACEMENT FOR HOSPICE CARE 09/15/24
--- NOTE | 2024-09-15 08:26 | NUR ---
PATIENT IN BED AT THIS TIME. BURRING WHEEL OPERATOR CHARTED VITALS AND I&O'S. CALL LIGHT WITHIN REACH, NO FURTHER NEEDS AT THIS TIME.
--- NOTE | 2024-09-15 08:35 | NUR ---
PATIENT IN BED AT THIS TIME. HEAVY ANTIARMOR WEAPONS INFANTRYMAN WENT INTO PATIENTS ROOM FOR HOURLY ROUNDS. CALL LIGHT WITHIN REACH, NO FURTHER NEEDS AT THIS TIME.
--- NOTE | 2024-09-15 08:50 | NUR ---
PT CONTINUES RESTING EYES CLOSED, AWAKENS TO VOICE. PT REPOSITIONED AGREES SHE IS COMFORTABLE, DENIES PAIN. ASSESSMENT COMPLETE [address] 2L NC SATS ARE 97% TURNED DOWN TO 1 L
--- NOTE | 2024-09-15 09:38 | NUR ---
PATIENT AGITATED, CLOTHING OFF, ATTEMPTING TO GET OUT OF BED, VERY DISORIENTED. PATIENT REMOVED OXYGEN WELL. 1MG OF ATIVAN GIVEN IV. LEFT ARM IV WRAPPED IN COBAN. PUREWICK IS BACK TO SUCTION.
--- NOTE | 2024-09-15 09:41 | NUR ---
PT RESTING CALMLY NOW DENIES NEED. SATS 84% ON RA 02 REPLACED AT 1LPM. BED ALARM IS SET. ORAL CARE PROVIDED
--- NOTE | 2024-09-15 09:48 | NUR ---
VISITED DURING SPIRITUAL CARE ROUNDS. PT REQUESTED AMORTIZATION CLERK VISIT. COAL PULVERIZING OPERATOR RELAYED REQUEST VIA NOTE IN SACRISTRY.
--- NOTE | 2024-09-15 10:09 | NUR ---
UPDATE GIVEN TO DR FOLEY AFTER PT BECAME RESTLESS CONTINUE CARE BEFORE ALARM IS SET. PT RESTING SOUNDLY NOW APPEARS CALM AND COMFORTABLE. [address]
[2024-09-15] MEDS ORDERED: DILT-XR180 MG PO (10:16)
--- NOTE | 2024-09-15 10:18 | NUR ---
PATIENT IN BED AT THIS TIME. ARCHITECTURAL TECHNOLOGIST CHARTED VITALS AND I&O'S. CALL LIGHT WITHIN REACH, NO FURTHER NEEDS AT THIS TIME.
--- NOTE | 2024-09-15 10:46 | NUR ---
GRANDDAUGHTER, VIVEK CASTILLO, CALLS TO SPEAK WITH CM. DISCUSSED DIFFICULTY IN CARING FOR PATIENT AT HOME. SHE WAS ON HOSPICE, HOSPICE HAS BEEN REVOKED PRIOR TO ADMISSION. VIVEK STATES PATIENT HAS FALLEN THREE TIMES IN THE LAST WEEK. SHE IS HAVING TO TAKE OFF WORK TO CARE FOR HER AND SHE HAS NO HELP CARING FOR HER HER FATHER ALSO NEEDS HER ASSISTANCE WITH CARES AT HIS HOME. STATES SHE IS CONCERNED ABOUT MONEY. HAS BEEN IN CONTACT WITH DHS, BHANU NINA, FOR PAPER PATTERN FOLDER MEDICAID AND TOLD PATIENT DOES NOT QUALIFY. CALLED BHANU TO CONFIRM, MESSAGE LEFT TO PLEASE CALL BACK. DISCUSSED POTENTIAL RESPITE AT HOSPICE HOUSE IN [place] VS SNF. PATIENT DOES NOT QUALIFY FOR INPATIENT SO SNF NOT LIKELY AN OPTION AT THIS POINT. SENDING REFERRAL TO HOSPICE HOUSE IN [place]. WILL CALL OTHER FACILITIES IN [facility] TO DISCUSS OPTIONS FOR POTENTIAL PLACEMENT. WILL CALL VIVEK TO UPDATE LATER TODAY REGARDING PLAN OF CARE/DISCHARGE. OF NOTE, PATIENT HAS ONLY SMALL AMOUNT OF FUNDS IN HER BANK ACCOUNT $500. GRANDDAUGHTER HAS BEEN ASSISTING HER TO PAY BILLS. GRANDDAUGHTER ALSO STATES SHE HAS RECENTLY INJURED HER BACK WHILE CARING FOR PATIENT AT HOME. SHE IS UNABLE TO CONTINUE CARING FOR HER AND IS TEARFUL WHEN DISCUSSING PATIENT SHE FEELS SHE IS FIGHTING A LOSING [place] WITH PLACEMENT FOR HER GRANDMOTHER BECAUSE "ALL ANYONE CARES ABOUT IS MONEY."
--- NOTE | 2024-09-15 11:09 | NUR ---
PATIENT IN BED AT THIS TIME. SUBSTANCE ABUSE NURSE DID ORAL ON CARE FOR PATIENT. CALL LIGHT WITHIN REACH, NO FURTHER NEEDS AT THIS TIME.
--- NOTE | 2024-09-15 11:15 | NUR ---
SPOKE WITH TIERA AT [facility]. STATES THE CASTING PLUG ASSEMBLER THERE HAS INITIATED ESL TUTOR MEDICAID PROCESS AND HAD A BED HELD AT [facility] PREVIOUSLY, BUT UNSURE WHERE THAT IS AT THIS POINT. CALLED GRANDDAUGHTER VIVEK. PATIENT DOES NOT OWN HOME, RENTS. GETS $1700/MONTH SOCIAL SECURITY. INFORMED VIVEK, HAVE SPOKEN TO [facility] AND THEY WOULD BE OK WITH PUTTING HER BACK ON SERVICE. DISCUSSED [facility], SHE HAS NOT SPOKEN TO THEM AT ALL. STATES SHE CAN NOT FINANCIALLY PUT PATIENT IN HOSPICE RESPITE CARE AT THIS TIME, SO THAT IS NO LONGER AN OPTION.
--- NOTE | 2024-09-15 11:47 | NUR ---
SPOKE WITH KENRICK AT [facility]. THEY HAVE A BED OPEN IMMEDIATELY. WOULD REQUIRE 2 WEEKS UP FRONT PAY FOR PENDING MEDICAID. ALSO SPOKE WITH BHANU NINA AT [facility]. STATES PATIENT HAS PENDING FINANCIAL ASSESSMENT 09/22/24 @1015. CONGRESSIONAL DISTRICT AIDE TO HOUSE TO ASSESS ON 09/17/24 @ 1330 THEN 15 DAY WAITING PERIOD FOR ASSET VERIFICATION. DOES NOT STATE PATIENT IS ABOVE INCOME AT THIS TIME.
[2024-09-15] MEDS ORDERED: PHARMACY RENAL DOSE ADJUSTMENT 1 DOSE MISC PO SCH (12:00)
--- NOTE | 2024-09-15 12:11 | NUR ---
PT RESTING SOUNDLY AWAKENED FOR VISIT WITH . PT ORAL CARE COMPLETED PRIVACY GIVEN
[2024-09-15] MEDS ORDERED: SENOKOT-S TABL1 EACH PO (12:45)
--- NOTE | 2024-09-15 12:49 | NUR ---
MED REC COMPLETE
--- NOTE | 2024-09-15 12:53 | NUR ---
PT FOUND SITTING UPRIGHT IN BED PURWIK REMOVED, COVERS OFF CLOTHES REMOVED. ASSISTED PT INTO A FRESH UNDERGARMENT BEHZAD CARE DONE MOVED UPRIGHT IN BED. PT RESPONDS YES WHEN ASKED IF SHE IS HUNGRY EATS MOST OF AN APPLESAUCE WITH STAFF ASSIST. NO SWALLOW PROBLEMS NOTED. AGREES SHE WOULD LIKE A SANDWICH GRILLED CHEESE ORDERED.
--- NOTE | 2024-09-15 13:10 | NUR ---
PT ASSISTED TO BSC SHE IS ABLE TO VOID AND RETURNS TO SITTING ON THE EDGE OF THE BED. MAX ASSIST TO INSTRUCT, BUT PT IS PHYSICALLY ABLE. PT EATS 1/2 A GRILLED CHEESE SANDWICH, PUDDING, AND MILD SELF FEEDS. PT RETURNS TO RESTING SUPINE WARM BLANKET PROVIDED. BED ALARM SET PT RESTING EYES CLOSED
--- NOTE | 2024-09-15 13:55 | NUR ---
PATIENT IN BED AT THIS TIME. NAVAL AIRCREWMAN CHARTED VITALS AND I&O'S. CALL LIGHT WITHIN REACH, NO FURTHER NEEDS AT THIS TIME.
--- NOTE | 2024-09-15 15:10 | NUR ---
PT SLEEPING SOUNDLY BED ALARM IS SET
[2024-09-15] MEDS ORDERED: MICONAZOLE NITRATE 1 EA BTL TOP SCH (15:19)
--- NOTE | 2024-09-15 15:30 | NUR ---
SPOKE WITH VIVEK REGARDING CONVERSATION WITH BHANU. VIVEK IS OPEN TO TRY TO PAY PRIVATELY, IF POSSIBLE, FOR PATIENT TO GO TO [facility] IF THEY ACCEPT THE PATIENT. CALLED AND SPOKE WITH LENIN AT [facility], CLINICALS FAXED. PHONE NUMBER PROVIDED TO VIVEK FOR [facility] TO DISCUSS FINANCIAL ASPECT OF PLACEMENT. NO NEW NEEDS AT THIS TIME.
--- NOTE | 2024-09-15 15:41 | NUR ---
PATIENT LYING IN BED. DISCUSSED DC PLAN TO [facility], SHE IS AGREEABLE IF IT IS POSSIBLE. STATES SHE DOES WANT TO CONTINUE ON HOSPICE CARE WHEN SHE IS DISCHARGED. FALLS ASLEEP SEVERAL TIMES DURING CONVERSATION BUT WAKES EASILY TO VOICE AND ANSWERS APPROPRIATELY.
--- NOTE | 2024-09-15 17:39 | NUR ---
PT AWAKE FOR EVENING MEAL, UNABLE TO SELF FEED EATS SEVERAL BITES WITH STAFF ASSIST, DRINKS FLUID THEN STATES SHE DOESN'T WANT ANYMORE. OFFERED TO TOILET PT AGREES BUT DOES NOT FOLLOW INSTRUCTIONS TO GET UP TO THE TOILET. RESTING NOW EYES CLOSED AND BED ALARM SET.
--- NOTE | 2024-09-15 17:59 | NUR ---
PATIENT UP TO BSC AND BACK TO BED, 2PA PIVOT. VITALS AND I&O'S DONE AND CHARTED. FRESH WATER GIVEN. BED ALARM ON. CALL LIGHT IN REACH.
--- NOTE | 2024-09-15 18:27 | NUR ---
PT SITTING UP IN BED DRINKING ENSURE WATCHING TV. DENIES DISCOMFORTS OR NEEDS. REFUSES UP TO THE TOILET.
--- NOTE | 2024-09-15 19:05 | NUR ---
REPORT RECEIVED FROM FELIX ORTEZ. BOARD UPDATED. pt UP TO THE BSC. pt DENIES ANY OTHER NEEDS AT THIS TIME. CALL LIGHT WITHIN REACH.
--- NOTE | 2024-09-15 20:30 | NUR ---
ASSESSMENT AND VITAL SIGNS DONE. pt RESTLESS IN THE BED. ATIVAN ADMINISTERED DUE TO pt BEING RESTLESS. PRN PAIN MEDS ADMINISTERED. DRINK OF WATER OFFERED AND GIVEN. pt DENIES ANY OTHER NEEDS AT THIS TIME. CALL LIGHT WITHIN REACH.
--- NOTE | 2024-09-15 21:35 | NUR ---
PRN HALDOL ADMINISTERED FOR pt AGITATION. pt SAT ON THE BSC TO TRY AND PEE. pt BLADDER SCANNED FOR GREATER THAN 400mL. pt UNABLE TO GO PEE AT THIS TIME. pt BACK TO THE BED. NO OTHER NEEDS AT THIS TIME. CALL LIGHT WITHIN REACH.
--- NOTE | 2024-09-15 22:15 | NUR ---
PHONE CALL PLACED TO DR. ELIAS ABOUT pt'S AGITATION AND BLADDER SCAN. NEW ORDERS GIVEN AND VERIFIED WITH REPEAT BACK METHOD.
[2024-09-15] MEDS ORDERED: LIDOCAINE 2% VISCOUS 6 ML SYR TOP ONE (22:30)
--- NOTE | 2024-09-15 22:41 | NUR ---
PATIENT IS RESTLESS IN BED. PATIENT UP TO BSC TO VOID PATIENT UNABLE TO VOID. CAVAZOS PLACED PER ORDER. PATIENT CONTINUES TO BE AGITATED, PRN MEDICATION GIVEN PER ORDER. PATIENT REPOSITIONED IN BED. NO FURTHER NEEDS NOTED. CALL LIGHT IN REACH. BED ALARM ON FOR SAFETY.
[2024-09-16] VITALS (9 sets, daily range): BP systolic 99–132; BP diastolic 66–84
--- NOTE | 2024-09-16 00:30 | NUR ---
PRN FENTANYL ADMINISTERED. pt RESTLESS AND AGITATED AT THIS TIME. NO OTHER NEEDS AT THIS TIME. CALL LIGHT WITHIN REACH.
--- NOTE | 2024-09-16 01:15 | NUR ---
pt RESTLESS IN THE BED. PRN ATIVAN ADMINISTERED. FLOAT PÉREZ SINGER SITTING IN RM DUE TO pt BEING AGITATED THROUGH OUT THE NIGHT. NO OTHER NEEDS AT THIS TIME.
--- NOTE | 2024-09-16 02:12 | NUR ---
PRN PAIN MEDS ADMINISTERED. pt RESPOSITIONED TO RIGHT SIDE. pt RESTLESS AND AGITATED AT THIS TIME. FLOAT RN IN A 1:1 FOR SAFETY. NO OTHER NEEDS AT THIS TIME. CALL LIGHT WITHIN REACH.
--- NOTE | 2024-09-16 03:48 | NUR ---
pt RESTING ON RIGHT SIDE. RR EVEN AND UNLABORED. CALL LIGHT WITHIN REACH.
--- NOTE | 2024-09-16 04:15 | NUR ---
pt REPOSITIONED WITH PILLOWS UNDER BOTH SIDES. RR EVEN AND UNLABORED. CALL LIGHT WITHIN REACH.
--- NOTE | 2024-09-16 06:03 | NUR ---
pt REPOSTIONED IN THE BED ON LEFT SIDE. pt VITAL SIGNS DONE. NO OTHER NEEDS AT THIS TIME. CALL LIGHT WITHIN REACH.
--- NOTE | 2024-09-16 07:24 | NUR ---
PT RESTING IN BED EYES CLOSED DOES NOT RESPOND TO STIMULI. SATS 97% ON 1 L02 BREATHING EVEN AND UNLABORED. BED ALARM IS SET
--- NOTE | 2024-09-16 08:31 | NUR ---
CATH CARE COMPLETED ORANGE/RED URINE DRAINING. PT CONTINUES NONRESPONSIVE. ORAL AND SKIN CARE DONE, PT REPOSITIONED.
--- NOTE | 2024-09-16 09:00 | NUR ---
Spoke with both Parker at [facility] and Elaine at [facility]. Both need to have further discussion then will let me know how to proceed with this pt. Jayne Leach is the case aide at [facility] for Felicitas at this time. She plans on seeing this pt tomorrow.
--- NOTE | 2024-09-16 10:08 | NUR ---
UR CLINICAL REVIEW: 2 MN FOR VERSALUS-MEETS OBS CRITERIA FOR COMFORT CARE MEDICARE OBS 09/14/24 @ 1346 ORDER MATCHES REG NO AUTH NOTED PER MEDICARE GUIDELINES DISCHARGE PENDING ONGOING ASSESSMENT AND MEDICAID QUALIFICATION 09/17/24
--- NOTE | 2024-09-16 10:19 | NUR ---
PT NOT AVAILABLE FOR VISIT. PROVIDED PRAYER.
--- NOTE | 2024-09-16 10:47 | NUR ---
PT CONTINUES AMBULATING THE SOUSA INDEPENDENTLY. SHE APPEARS STEADY ON HER FEET DENIES ANY DISCOMFORTS OR NEEDS OF
--- NOTE | 2024-09-16 11:37 | NUR ---
PT RESTING EYES CLOSED
--- NOTE | 2024-09-16 11:57 | NUR ---
PATIENT IN BED AT THIS TIME. AUTOMATIC MAINTAINER PROVIDED PATIENT WITH CATHERTER CARE AND REPOSISTIONED PATIENT. CALL LIGHT WITHIN REACH, NO FURTHER NEEDS AT THIS TIME.
--- NOTE | 2024-09-16 12:08 | NUR ---
PATIENT IN BED AT THIS TIME. COMMUNITY SUPPORT SPECIALIST PROVIDED ORAL CARE AND THEN REPOSITIONED PATIENT IN BED. CALL LIGHT WITHIN REACH, NO FURTHER NEEDS AT THIS TIME.
--- NOTE | 2024-09-16 13:19 | NUR ---
PT HAS REMAINED OBTUNDED THIS SHIFT, OPENED HER EYES TO PHYSICAL STIMULI ONE TIME. SHE HAS HAD CATH CARE, SKIN CARE, ORAL CARE AND FREQUENT POSITION CHANGES. MINIMAL URINE OUTPUT DARK ORANGE IN COLOR. BREATHING REMAINS UNLABORED NO S/S OF DISCOMFORT. BED ALARM IS SET AND PT IS VISUAL TO RN STATION
--- NOTE | 2024-09-16 14:12 | NUR ---
PATIENT IN BED AT THIS TIME. WRITER TECHNICAL PUBLICATIONS CHARTED VITALS AND I&O'S AND REPOSITIONED PATIENT IN BED. CALL LIGHT WITHIN REACH, NO FURTHER NEEDS AT THIS TIME.
--- NOTE | 2024-09-16 14:48 | NUR ---
PT MOVING ABOUT A BIT OPENS EYES BRIEFLY TO VERBAL STIMULI. ASSISTED PT TO SIT UPRIGHT IN BED SHE DRINKS SEVERAL SIPS OF H20 AFTER AGREEING SHE WAS THIRSTY. WELL TOLERATED NO COUGHING OR CHOKING RESPONDS "THANK YOU" PT CONTINUES TO MOVE ABOUT ASSISTED WITH REPOSITIONING UNTIL SHE APPEARED RESTFUL.
--- NOTE | 2024-09-16 15:17 | NUR ---
Attempted to call Parker at [facility]. She is in a meeting and will call back.
--- NOTE | 2024-09-16 15:55 | NUR ---
PT RESTING SOUNDLY THEN BECOMES RESTLESS REPOSITIONING TRYING TO SIT UP THEN RETURNS TO RESTING QUIETLY. ANSWERS NOW WHEN ASKED IF SHE IS PAINFUL. NO MOANING OR GRIMACE DOES NOT APPEAR TO BE PAINFUL. SATS 94% ON 1 L. ORAL CARE PROVIDED
--- NOTE | 2024-09-16 16:24 | NUR ---
Received a text from Parker, as pt is very sleepy from meds last night, they are unable to evaluate. She has not heard from [employer] at this time.
--- NOTE | 2024-09-16 16:39 | NUR ---
In and spoke with Rn, Gia. Pt remains sedated following meds last night. Pt did awaken and have a drink of water. Will fu with granddaughter today and Ronmendoza from [facility] tomorrow.
--- NOTE | 2024-09-16 17:55 | NUR ---
PATIENT IN BED AT THIS TIME. FABRICATOR FOAM RUBBER CHARTED VITALS AND I&O'S. CALL LIGHT WITHIN REACH, NO FURTHER NEEDS AT THIS TIME.
[2024-09-16] MEDS ORDERED: ALBUTEROL SULFATE 0.083% 3 ML VIAL INH PRN (18:45)
--- NOTE | 2024-09-16 19:32 | NUR ---
REPORT RECIEVED FROM DAY SHIFT RN. PATIENT RESTING IN BED WITH EYES CLOSED. RESPIRATIONS EVEN AND UNLABORED. CALL LIGHT IN REACH.
--- NOTE | 2024-09-16 19:52 | NUR ---
MD ELIAS ON FLOOR. VERBAL OVER RECIEVED FOR PRN MEDICATION. VERIFIED USING REPEAT BACK METHOD.
[2024-09-16] MEDS ORDERED: QUETIAPINE FUMARATE 25 MG TAB PO PRN (20:00)
--- NOTE | 2024-09-16 20:15 | NUR ---
PATIENT APPEARING RESTLESS IN BED. VS AND I&Os OBTAINED AND RECORDED. CAVAZOS CATH CARE PROVIDED PER PROTOCOL. DESINEX POWDER PLACED PER ORDER. ASSESSMENT COMPLETE. BED ALARM ON. CALL LIGHT IN REACH.
--- NOTE | 2024-09-16 22:21 | NUR ---
PATIENT RESTING IN BED ON LEFT RIDE. RESPIRATIONS EVEN AND UNLABORED. CALL LIGHT IN REACH. BED ALARM ON.
--- NOTE | 2024-09-16 23:38 | NUR ---
PATIENT RESTLESS IN BED. NEW SLIDE SHEET, ANDRIA, AND BREIF PLACED. PATIENT REPOSITONED IN BED. 2 WARM BLANKETS PROVIDED. BED ALARM ON. CALL LIGHT IN REACH.
[2024-09-17] VITALS (10 sets, daily range): BP systolic 93–159; BP diastolic 56–86
--- NOTE | 2024-09-17 02:53 | NUR ---
PATIENT RESTING IN BED ON RIGHT SIDE WITH EYES CLOSED. RESPIRATIONS EVEN AND UNLABORED. CALL LIGHT IN REACH. WARM BLANKETS ON. CALL LIGHT IN REACH.
--- NOTE | 2024-09-17 04:21 | NUR ---
PATIENT APPEARS RESTLESS IN BED. VS AND I&Os OBTAINED AND RECORDED. PATIENT REPOSITIONED IN BED. WARM BLANKETS PLACED. BED ALARM ON. PATIENT REQUESTING WATER, AND ABLE TO DRINK WATER WITH THE HELP OF STAFF. APPLE JUICE REQUESTED. APPLE JUICE PROVIDED AND STEWART COSME HELPED PATIENT DRINK THE JUICE. PATIENT ABLE TO FOLLOW SOME COMMANDS AND ANSWER YES OR NO QUESTIONS AT THIS TIME. PATIENT HAS NO FURTHER NEEDS A THIS TIME. CALL LIGHT IN REACH.
--- NOTE | 2024-09-17 05:14 | NUR ---
PATIENT RESTLESS IN BED. THIS RN ASKED PATIENT IF SHE WAS IN PAIN AND PATIENT STATED "YES" BUT COULD NOT SAY WHERE THE PAIN WAS LOCATED. FACES PAIN SCALE SCORE OF 5. PRN PAIN MEDICATION ADMINISTERED. NO FURTHER NEEDS. BED ALARM ON. CALL LIGHT IN REACH.
--- NOTE | 2024-09-17 06:31 | NUR ---
PUT NEW GOWN ON PT.
--- NOTE | 2024-09-17 07:16 | NUR ---
REPORT RECEIVED FROM HOUSING PROPERTY MANAGER RN KINZA. PATIENT IS LYING ON THEIR LEFT SIDE WITH HER ARM OVER THE BED. PATIENT WITH EYES OPEN AND RESPIRATIONS ARE EVEN AND UNLABORED. CALL LIGHT AND PERSONAL BELONGINGS ARE WITHIN REACH.
--- NOTE | 2024-09-17 08:30 | NUR ---
0900 MEDICATIONS ADMINISTERED PER THE EMAR. FULL ASSESSMENT COMPLETE AND DOCUMENTED IN THE CHART. PATIENT IS ORIENTED TO SELF ONLY AT THIS TIME. PATIENT IS DROWSY AND SLOW TO RESPOND. PATIENT IS CONFUSED. PATIENT DOES NO FOLLOW COMMANDS OR OPEN EYES TO RN. SKIN WITH REDNESS NOTED UNDER BILATERAL BREASTS AND IN THE BEHZAD AREA. SKIN WITH SCATTERED BRUISING NOTED. DRY SKIN NOTED TO BILATERAL FEET. CAVAZOS CATHETER IN PLACE. CAVAZOS CARE COMPLETE. PATIENT IS ON A MINCED AND MOIST DIET. BOWEL TONES ARE ACTIVE IN ALL FOUR QUADRANTS. METOPROLOL DOSE HELD DUE TO SYSTOLIC BP LESS THAN 100 AND PROTONIX HELD DUE TO PATIENT INABILITY TO FOLLOW COMMANDS. PATIENT IS ON 3 L NC WITH CLEAR LUNG SOUNDS BILATERALLY. SCOPALOMINE PATCH PLACED BEHIND THE LEFT EAR. HEART TONES ARE IRREGULAR ON AUSCULTATION. RADIAL AND PEDAL PULSES ARE STRONG BILATERALLY. CAPILLARY REFILL IN THE UPPER AND LOWER EXTREMITIES IS LESS THAN 3 SECONDS. RN UNABLE TO ASSESS SENSATION AND NUMBNESS AND TINGLING. IV SITE FLUSHED WITH 10 ML NORMAL SAINE AND IS SALINE LOCKED. IV DRESSING IS CLEAN, DRY, AND INTACT. ABDOMEN WITH ASCITES NOTED. PATIENT REPOSITIONED. CALL LIGHT AND PERSONAL BELONGINGS ARE WITHIN REACH.
[2024-09-17] MEDS ORDERED: METOPROLOL SUCCINATE 25 MG TABCR PO SCH (09:00)
[2024-09-17] MEDS ORDERED: PANTOPRAZOLE SODIUM 40 MG TABEC PO SCH (09:00)
[2024-09-17] MEDS ORDERED: SCOPOLAMINE 1 MG/3 DAYS PATCH 1 EACH TDSY TD SCH (09:00)
--- NOTE | 2024-09-17 09:05 | NUR ---
MD NOTIFIED OF PATIENT BLOOD PRESSURE AND HR. MD NOTIFIED OF HOLDING PO MEDICATIONS. MD WITH NO FURTHER ORDERS AT THIS TIME. PATIENT GRAND DAUGHTER GIVEN UPDATE AND CARE CONFERENCE SCHEDULED FOR 1230 TODAY. CALL ENDED.
--- NOTE | 2024-09-17 09:26 | NUR ---
PATIENT IS LYING IN BED ON HER LEFT SIDE WITH EYES CLOSED AND RESPIRATIONS ARE EVEN AND UNLABORED. CALL LIGHT AND PERSONAL BELONGINGS ARE WITHIN REACH.
--- NOTE | 2024-09-17 10:04 | NUR ---
PATIENT IS LYING ON HER RIGHT SIDE WITH EYES CLOSED AND RESPIRATIONS ARE EVEN AND UNLABORED. CALL LIGHT AND PERSONAL BELONGINGS ARE WITHIN REACH.
--- NOTE | 2024-09-17 11:05 | NUR ---
PATIENT IS LYING ON HER RIGHT SIDE WITH EYES CLOSED AND RESPIRATIONS ARE EVEN AND UNLABORED. PATIENT NC IN PLACE. CALL LIGHT AND PERSONAL BELONGINGS ARE WITHIN REACH.
--- NOTE | 2024-09-17 12:06 | NUR ---
PATIENT IS LYING IN BED ON HER RIGHT SIDE WITH EYES CLOSED AND RESPIRATIONS ARE EVEN AND UNLABORED. CALL LIGHT AND PERSONAL BELONGINGS ARE WITHIN REACH.
--- NOTE | 2024-09-17 12:30 | NUR ---
Met with Em (granddaughter), Dr. Pulido, and myself. Pt sleeping and not awake for conversation. Pt has not been awake for 24 hrs. Em updated I spoke with Parker from [facility] and they have not agreed to take this pt. They do not have a room for a female at this time. They also have concerns as pt was impulsive and out of bed frequently the night before last. Parker will contact Elaine Sapp to check how the intermodal owner operator truck driver medicaid is going. Discussed options of care for Felicitas. Em now would like to place pt on comfort care. She does not believe she is going to awaken or improve. I will cont. to work with [facility] to admit this pt and return her to hospice.
--- NOTE | 2024-09-17 12:45 | NUR ---
CARE CONFERENCE COMPLETE. DR.JAGOO ALYSA, THIS RN, AND PATIENTS GRAND DAUGHTER ARE PRESENT AT THIS TIME. PATIENT FAMILY MEMBER PROVIDED ICE WATER. PATIENT FAMILY STATED NO FURTHER NEEDS AT THIS TIME. CALL LIGHT AND PERSONAL BELONGINGS ARE WITHIN REACH.
--- NOTE | 2024-09-17 13:29 | NUR ---
PATIENT IS LYING ON HER LEFT SIDE WITH EYES CLOSED AND RESPIRATIONS ARE EVEN AND UNLABORED. CALL LIGHT AND PERSONAL BELONGINGS ARE WITHIN REACH.
--- NOTE | 2024-09-17 13:35 | NUR ---
VISITED DURING SPIRITUAL CARE ROUNDS. PT APPEARED TO BE SLEEPING. DID NOT DISTURB. PROVIDED PRAYER.
--- NOTE | 2024-09-17 14:44 | NUR ---
PATIENT IS LYING ON HER LEFT SIDE WITH EYES CLOSED AND RESPIRATIONS ARE EVEN AND UNLABORED. RR IS 15 AT THIS TIME. CALL LIGHT AND PERSONAL BELONGINGS ARE WITHIN REACH.
--- NOTE | 2024-09-17 15:15 | NUR ---
PATIENT IS LYING IN BED ON THEIR SIDE WITH EYES CLOSED AND RESPIRATIONS ARE EVEN AND UNLABORED. BED BATH COMPLETE. SHOWER CAP DONE. PATIENT WITH FRESH BEDDING AND WARM BLANKETS PROVIDED. HAIR BRAIDED AT THIS TIME. PATIENT IS ON 3 L NC AND LUNG SOUNDS ARE CLEAR BILATERALLY. IV SITR FLUSHED WITH 10 ML NORMAL SALINE AND IS SALINE LOCKED. IV DRESSING IS CLEAN, DRY, AND INTACT. PATIENT IS A 0/10 REGARDING PAIN USING THE FLACC SCALE. BED ALARMS ON. CALL LIGHT AND PERSONAL BELONGINGS ARE WITHIN REACH.
--- NOTE | 2024-09-17 16:21 | NUR ---
PATIENT IS LYING ON HER LEFT SIDE WITH EYES CLOSED AND RESPIRATIONS ARE EVEN AND UNLABORED. CALL LIGHT AND PERSONAL BELONGINGS ARE WITHIN REACH.
--- NOTE | 2024-09-17 18:29 | NUR ---
PATIENT IS LYING ON HER BACK WITH EYES CLOSED AND RSPIRATIONS ARE EVEN AND UNLABORED. PATIENT IS ON ROOM AIR. CALL LIGHT AND PERSONAL BELONGINGS ARE WITHIN REACH.
--- NOTE | 2024-09-17 19:35 | NUR ---
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 BED ALARM ON. CALL LIGHT IN REACH.
--- NOTE | 2024-09-17 19:54 | NUR ---
PATIENT RESTLESS IN BED. THIS RN AND DONKEY DOCTOR TO ROOM. THIS RN ASKED PATIENT IF SHE WAS IN PAIN AND SHE SAID "YES. EVERYWHERE". PRN PAIN MEDICATION ADMINISTERED. VS AND I&Os OBTAINED AND RECORDED. [facility] CATH CARE PROVIDED PER PROTOCOL. SCHEDULED POWDER PLACED UNDER BILAT BREASTS AND BILAT GROIN. PATIENT TAMIKO WELL. FALL MATS IN PLACE. BED ALARM ON. CALL LIGHT IN REACH.
[2024-09-17] MEDS ORDERED: ALBUTEROL SULFATE 0.083% 3 ML VIAL INH PRN (20:45)
--- NOTE | 2024-09-17 21:45 | NUR ---
WITH ASSIST OF STONE DRILLER, PT REPOSTIONED. PLACED BLANKETS ALONG THE BACK SIDE OF HER, HER PREFERENCE IS TO BE NAKED. [facility] PATENT. BED ALARM IN PLACE.
--- NOTE | 2024-09-17 23:11 | NUR ---
pt GETTING RESTLESS IN THE BED AND KICKING LEGS OVER THE BED RAILS AND BED ALARM STARTED ALARMING. THIS RN WENT IN RM TO CHECK ON pt AND ASK pt IS SHE WAS HAVING ANY PAIN. pt STATED "YES". THIS RN ADMINISERED PRN PAIN MEDS. AFTER MEDS WERE ADMINISTERED THIS RN ASK pt IF HER PAIN WAS BETTER. pt STATED YES IT DOES. NO OTHER NEEDS AT THIS TIME.
--- NOTE | 2024-09-18 00:24 | NUR ---
PATIENT RESTING ON LEFT SIDE WITH EYES CLOSED. RESPIRATIONS EVEN AND UNLABORED. CALL LIGHT IN REACH.
--- NOTE | 2024-09-18 02:00 | NUR ---
PATIENT RESTLESS IN BED. THIS RN ASKED PATIENT IF SHE WAS IN PAIN AND SHE STATED "YES". PRN PAIN MEDICATION ADMINISTERED. NEW DRAW SHEET AND ANDRIA PLACED. PATIENT REPOSITIONED IN BED. PATIENT APPEARS TO BE COMFORTABLE AT THIS TIME. CALL LIGHT IN REACH. BED ALARM ON.
--- NOTE | 2024-09-18 03:14 | NUR ---
PATIENT RESTING IN BED WITH EYES CLOSED. RESPIRATIONS EVEN AND UNLABORED. CALL LIGHT IN REACH.
--- NOTE | 2024-09-18 05:45 | NUR ---
PATIENT RESTING IN BED WITH EYES CLOSED. RESPIRATIONS EVEN AND UNLABORED. CALL LIGHT IN REACH.
--- NOTE | 2024-09-18 07:07 | NUR ---
REPORT RECEIVED FROM DIRECTOR REACTOR PROJECTS RN KINZA. PATIENT IS LYING ON HER LEFT SIDE WITH EYES CLOSED AND RESPIRATIONS ARE EVEN ANBD UNLABORED. CALL LIGHT AND PERSONAL BELONGINGS ARE WITHIN REACH.
--- NOTE | 2024-09-18 08:15 | NUR ---
PATIENT IS LYING IN BED WITH EYES CLOSED AND RESPIRATIONS ARE EVEN AND UNLABORED. STEWART LEIGH AND STEWART WARD ASSISTED WITH [facility] CARE AND [facility] CARE. PATIENT REPOSITIONED. 0900 DESENEX ADMINISTERED AT THIS TIME. BARRIER CREAM PLACED UNDER THE BREASTS AND ON THE BOTTOM. CALL LIGHT AND PERSONAL BELONGINGS ARE WITHIN REACH.
[2024-09-18 09:46] VITALS: BP 104/60
--- NOTE | 2024-09-18 10:08 | NUR ---
PATIENT IS LYING ON HER LEFT SIDE WITH EYES CLOSED AND RESPIRATIONS ARE EVEN AND UNLABORED. CALL LIGHT AND PERSONAL BELONGINGS ARE WITHIN REACH.
--- NOTE | 2024-09-18 10:30 | NUR ---
In and checked on pt. She is resting naked with legs over side rail. Lifted pts legs back into bed. She does not awaken. I called and spoke with Parker at [facility]. She did speak with [facility], [facility] and Disability. It will be 40 days before a decision is made for intermediate medicaid. They have 1 bed available and will not be able to accept this pt. Texted Em to let her know. Pt will remain on Comfort care here, I will cont. to look for placement. I will check with Yayo.
--- NOTE | 2024-09-18 10:38 | NUR ---
PT NOT AVAILABLE FOR VISIT. PROVIDED PRAYER.
--- NOTE | 2024-09-18 10:46 | NUR ---
PT IS RESTLESS IN BED, THROWING LEG OVER THE BED RAIL. I INFORMED PT I WAS GOING TO GIVE HER MEDICATION FOR PAIN/ANXIETY TO HELP HER REST, SHE STATES OKAY. UNABLE TO GIVE ME A NUMERICAL NUMBER FOR HER PAIN AT THIS TIME. JUST RESPONDED OKAY BUT NO OTHER RESPONSES TO MY QUESTIONS. PT IS MOANING AND GRIMACING WITH MOVEMENT/TOUCH. BED ALARM IN PLACE, PATIENT IS RESTLESS AND CATHETER IS NOT IN THE STAT LOCK, RECONNECTED THE SECURE STAT LOCK ON CATHETER TUBING AT THIS TIME.
[2024-09-18 10:53] VITALS: BP 104/60
--- NOTE | 2024-09-18 11:07 | NUR ---
PATIENT IS LYING IN BED TOWARDS HER RIGHT SIDE WITH EYES CLOSED AND RESPIRATIONS ARE EVEN AND UNLABORED. CALL LIGHT AND PERSONAL BELONGINGS ARE WITHIN REACH.
--- NOTE | 2024-09-18 11:16 | NUR ---
PATIENT UPDATE GIVEN TO VIVEK CASTILLO AT THIS TIME. ALL QUESTIONS AND CONCERNS ADDRESSED AT THIS TIME. CALL ENDED.
--- NOTE | 2024-09-18 11:35 | NUR ---
PATIENT IS LYING IN BED ON HER RIGHT SIDE WITH EYES CLOSED AND RESPIRATIONS ARE EVEN AND UNLABORED. CALL LIGHT AND PERSONAL BELONGINGS ARE WITHIN REACH.
--- NOTE | 2024-09-18 11:45 | NUR ---
PATIENT IS LYING IN BED ON HER RIGHT SIDE WITH EYES CLOSED AND RESPIRATIONS ARE EVEN AND UNLABORED. ASSESSMENT COMPLETE AT THIS TIME. PATIENT IS DROWSY AND UNABLE TO VERBALIZE HER NAME. SKIN WITH REDNESS NOTED UNDER THE BREASTS AND BEHZAD AREA. SCATTERED BRUISING NOTED. DRY SKIN NOTED TO THE BILATERAL FEET. ABRASION NOTED ON THE OUTSIDE OF THE LEFT LEG. ALEVYN PLACED OVER THE TOP. [facility] CATHETER IN PLACE AND DRAINING COKE-A-COLA COLORED URINE. LOW URINE OUTPUT NOTED. [facility] CARE AND BEHZAD CARE COMPLETE EARLIER THIS MORNING. REFERENCE NOTES. BED ALARM IN PLACE. PATIENT WITH ASCITES NOTED. PATIENT IS ON ROOM AIR AND LUNG SOUNDS ARE CLEAR IN ALL LUNG PUENTES BILATERALLY. HEART TONES ARE IRREGULAR ON AUSCULTATION. RADIAL PULSES ARE STRONG BILATERALLY. IV SITE IS SALINE LOCKED. IV DRESSING IS CLEAN, DRY, AND INTACT. PATIENT FLACC SCORE IS 6/10. CALL LIGHT AND PERSONAL BELONGINGS ARE WITHIN REACH.
--- NOTE | 2024-09-18 12:32 | NUR ---
MAKING ROUNDS, CALLED THIS RN TO ROOM. PT IS RESTING, AGONAL BREATHING PRESENT. PATIENT IS STILL RESTLESS IN THE BED, NO RESPONDING TO MY QUESTIONS BUT IS MOANING. PRN MORPHIN/ATIVAN GIVEN - SEE MAR. BED ALARM IN PLACE AT THIS TIME.
--- NOTE | 2024-09-18 13:07 | NUR ---
PATIENT IS LYING IN BED WITH EYES CLOSED AND RESPIRATIONS ARE EVEN AND UNLABORED. CALL LIGHT AND PERSONAL BELONGINGS ARE WITHIN REACH.
--- NOTE | 2024-09-18 14:18 | NUR ---
PATIENT IS LYING ON HER BACK WITH EYES CLOSED AND RESPIRATIONS VISUALIZED.
--- NOTE | 2024-09-18 15:00 | NUR ---
WASHED PATIENT'S FACE AND DID ORAL CARE.
--- NOTE | 2024-09-18 15:06 | NUR ---
Called and spoke with Julieta at [facility] and they do have beds. Chart faxed to Julieta to review.
--- NOTE | 2024-09-18 15:07 | NUR ---
PATIENT IS LYING ON HER BACK IN BED WITH EYES CLOSED AND RESPIRATIONS ARE EVEN AND UNLABORED.
--- NOTE | 2024-09-18 16:20 | NUR ---
PATIENT GRAND-DAUGHTER VIVEK PRESENT AT THE BEDSIDE. PATIENT FAMILY MEMBER GIVEN UPDATE. PATIENT FAMILY MEMBER EXPRESSED NO FURTHER QUESTIONS OR CONCERNS. RN PROVIDED VIVEK WITH ICE WATER. PATIENT IS LYING IN BED ON HER BACK WITH EYES CLOSED AND RESPIRATIONS ARE EVEN AND UNLABORED. CALL LIGHT IN REACH.
--- NOTE | 2024-09-18 17:13 | NUR ---
PATIENT IS LYING IN BED ON HER BACK WITH EYES CLOSED. AGONAL BREATHING NOTED. MOTTLING NOTED TO THE PATIENTS TOES AND MOUTH. PATIENT IS LYING IN BED WITHOUT HARSH MOVEMENTS. PATIENT COVERED WITH BLANKETS.
--- NOTE | 2024-09-18 18:10 | NUR ---
PATIENT IS LYING IN BED ON HER BACK WITH EYES CLOSED AND LABORED BREATHING NOTED.
--- NOTE | 2024-09-18 18:43 | NUR ---
Patient laying in bed, STEWART Stern and STEWART Madden repositioned her. Covered her up and placed call light in reach.
--- NOTE | 2024-09-18 19:22 | NUR ---
REPORT RECIEVED FROM DAY SHIFT RN. PATIENT RESTING IN BED WITH EYES CLOSED. APPEARS COMFORTABLE. AGONAL BREATHING NOTED. NO FURTHER NEEDS. CALL LIGHT IN REACH.
--- NOTE | 2024-09-18 20:05 | NUR ---
PATIENT APPEARING TO BE UNCOMFORTABLE. AGONAL BREATHING NOTED. PRN PAIN MEDICATION ADMINISTERED.
--- NOTE | 2024-09-18 20:33 | NUR ---
CALLED VIVEK CASTILLO, PT GRANDDAUGHTER WILL COME IN AND SIT WITH PT.
--- NOTE | 2024-09-18 20:53 | NUR ---
PATIENT REPOSITIONED IN BED. ORAL CARE PROVIDED. CHAPSTICK PLACED ON PATIENT BY THIS RN. [facility] CATH CARE PROVIDED PER PROTOCOL. PATIENT APPEARS COMFORTABLE AT THIS TIME. CALL LIGHT IN REACH.
--- NOTE | 2024-09-18 21:37 | NUR ---
PATIENT RESTING IN BED, APPEARS COMFORTABLE AT THIS TIME. GRAND DAUGHTER RESTING IN BED WITH PATIENT. NO FURTHER NEEDS. CALL LIGHT IN REACH.
--- NOTE | 2024-09-18 22:21 | NUR ---
PATIENT APPEARS UNCOMFORTABLE. PRN PAIN MEDICATION ADMINISTERED. GRANDDAUGHTER IN ROOM. WARM BLANKETS AND PILLOW PROVIDED TO GRANDDAUGHTER. NO FURTHER NEEDS. CALL LIGHT IN REACH.
--- NOTE | 2024-09-19 00:16 | NUR ---
PATIENT RESTING IN BED WITH EYES CLOSED. AGONAL BREATHING NOTED. PRN PAIN MEDICATION ADMINISTERED. GRANDDAUGHTER RESTING IN BED WITH PATIENT. NO FURTHER NEEDS. CALL LIGHT IN REACH.
--- NOTE | 2024-09-19 02:22 | NUR ---
PATIENT APPEARS TO BE UNCOMFORTABLE IN BED, WITH INCREASED RESPIRATIONS. PRN PAIN MEDICATION ADMINISTERED. NO FURTHER NEEDS. CALL LIGHT IN REACH.
--- NOTE | 2024-09-19 02:56 | NUR ---
ORAL CARE PERFORMED AND CHAPSTICK APPLIED ON PATIENT. NEW GOWN PLACED. PATIENT REPOSITIONED IN BED WITH NEW SLIDE SHEET, ANDRIA, AND BREIF PLACED AFTER BEHZAD CARE PROVIDED. PATIENT POSITIONED WITH PILLOWS PLACED UNDER RIGHT SIDE. PATIENT APPEARS COMFORTABLE AT THIS TIME. PATIENT AND GRADDAUGHTER HAVE NO FURTHER NEEDS. CALL LIGHT IN REACH.
--- NOTE | 2024-09-19 04:05 | NUR ---
NO RESPIRATIONS OR PULSE NOTED FOR ONE MINUTE. SUPERVISER AND MD NOTIFIED AT THIS TIME.
--- NOTE | 2024-09-19 04:20 | NUR ---
MD ELIAS HERE TO PRONOUNCE TIME OF . TIME OF 0405. GRANDDAUGHTER AND BF IN ROOM AT THIS TIME. PASTORAL CARE, TRAVIS, HERE TO PRAY OVER PATIENT WITH FAMILY. FAMILY HAS NO FURTHER NEEDS AT THIS TIME. FAMILY REMAINS IN ROOM WITH PATIENT.
--- NOTE | 2024-09-19 04:55 | NUR ---
Received call at 0409 that patient had passed. Arrived at 0430 and met with family of . Had prayer with the family. Family elected to use [facility] [facility] for their home. Called home at 4:42
--- NOTE | 2024-09-19 06:00 | NUR ---
PATIENT OFF THE FLOOR WITH [employer] AT THIS TIME.
--- NOTE | 2024-09-19 06:10 | NUR ---
home arrived at 0548. There were no family effects to be distributed. home departed at 0605.
== END 2024-09-19 04:05 ==
LOC: ED 13:45 → MS 13:46
PROVIDERS: Emergency Medicine; ADMIT Family Medicine; ATTEND Family Medicine
DX: Z51.5 Encounter for palliative care (principal); K72.10 Chronic hepatic failure without coma; J44.9 Chronic obstructive pulmonary disease, unspecified; I48.91 Unspecified atrial fibrillation; E11.9 Type 2 diabetes mellitus without complications; E03.9 Hypothyroidism, unspecified; F17.200 Nicotine dependence, unspecified, uncomplicated; Z66 Do not resuscitate; Z79.899 Other long term (current) drug therapy; Z91.013 Allergy to seafood; Z88.8 Allergy status to other drugs, medicaments and biological substances
CPT/HCPCS: 36415; 51702; 51798; 80053; 81003; 82140; 85025; 85060; 94760; 96374; 96375; 96376; 99285-25; G0378; J1630; J2060; J2270; J3010; J7040